=== PATIENT | male | born 1965 | race Caucasian/White ===

== ENCOUNTER 2024-06-09 05:42 | Day surgery (SDC) | payer OTHER ==
[~2024-06-09] VITALS: Ht 167.6 cm; Wt 68.2 kg
[2024-06-09] MEDS: SODIUM CHLORIDE 0.9% 1,000 ML IV ONE (06:37)
[2024-06-09] MEDS ORDERED: LIDOCAINE/PF 2% 5 ML VIAL IM ONE (12:00)
[2024-06-09] MEDS ORDERED: PROPOFOL 1% 20 ML VIAL IVP ONE (12:00)
[2024-06-09] MEDS ORDERED: OXYGEN THERAPY IH SCH (20:00)
== END 2024-06-09 09:56 | disposition home or self-care (01) ==
LOC: SURGERY 05:42
PROVIDERS: ATTEND Specialist
DX: R19.7 Diarrhea, unspecified (principal); R63.4 Abnormal weight loss; R13.19 Other dysphagia; K29.50 Unspecified chronic gastritis without bleeding; B96.81 Helicobacter pylori [H. pylori] as the cause of diseases classified elsewhere; K44.9 Diaphragmatic hernia without obstruction or gangrene; Z87.891 Personal history of nicotine dependence; Z98.890 Other specified postprocedural states; Z68.24 Body mass index [BMI] 24.0-24.9, adult; Z80.9 Family history of malignant neoplasm, unspecified; Z82.49 Family history of ischemic heart disease and other diseases of the circulatory system
CPT/HCPCS: 45380; 43239; 88313; 88305; 88312; C1769; J2704; J3490